=== PATIENT | female | born 1950 | race Caucasian/White ===

== ENCOUNTER → 2017-06-29 | Outpatient (CLI) | payer OTHER | END | disposition home or self-care (01) | LOC: CFH 09:21 | PROVIDERS: ATTEND Nurse Practitioner | DX: Z12.31 Encounter for screening mammogram for malignant neoplasm of breast (principal); Z13.820 Encounter for screening for osteoporosis; M85.88 Other specified disorders of bone density and structure, other site; N95.8 Other specified menopausal and perimenopausal disorders | CPT/HCPCS: 77080; 77067 ==

== ENCOUNTER → 2018-06-30 | Outpatient (CLI) | payer OTHER | END | disposition home or self-care (01) | LOC: CFH 08:30 | PROVIDERS: ATTEND Licensed Practical Nurse | DX: Z12.31 Encounter for screening mammogram for malignant neoplasm of breast (principal) | CPT/HCPCS: 77063; 77067 ==

== ENCOUNTER → 2019-07-10 | Outpatient (CLI) | payer MEDICARE, OTHER | END | disposition home or self-care (01) | LOC: CFH 09:52 | PROVIDERS: ATTEND Licensed Practical Nurse | DX: Z12.31 Encounter for screening mammogram for malignant neoplasm of breast (principal); Z12.2 Encounter for screening for malignant neoplasm of respiratory organs; N95.8 Other specified menopausal and perimenopausal disorders; I25.10 Atherosclerotic heart disease of native coronary artery without angina pectoris; J84.10 Pulmonary fibrosis, unspecified; M81.0 Age-related osteoporosis without current pathological fracture; F17.210 Nicotine dependence, cigarettes, uncomplicated | CPT/HCPCS: 77063; 77067; 77080; G0297 ==

== ENCOUNTER → 2019-12-25 | Outpatient (CLI) | payer MEDICARE | END | disposition home or self-care (01) | LOC: CFH 08:49 | PROVIDERS: ATTEND Nurse Practitioner | DX: M54.9 Dorsalgia, unspecified (principal) | CPT/HCPCS: 72110 ==

== ENCOUNTER 2020-01-31 11:38 | Day surgery (SDC) | payer MEDICARE ==
[~2020-01-31] VITALS: Ht 165.1 cm; Wt 57.2 kg
[2020-01-31] MEDS ORDERED: LACTATED RINGERS 1,000 ML IV SCH (12:15)
[2020-01-31 12:29] VITALS: BP 114/73
[2020-01-31] MEDS ORDERED: CHLORHEXIDINE 15 ML UDC MM ONE (12:30)
[2020-01-31] MEDS ORDERED: HYDR-3246 PO (12:45)
[2020-01-31] MEDS ORDERED: METH750T2 PO (12:45)
[2020-01-31] MEDS ORDERED: LOVA20TA2 PO (12:45)
[2020-01-31] MEDS ORDERED: NEOSTIGMINE 1 MG/ML, 10ML ONE (14:30)
[2020-01-31] MEDS ORDERED: PROMETHAZINE 25 MG/ML, 1ML IVPush PRN (14:30)
[2020-01-31] MEDS ORDERED: PROPOFOL 10 MG/ML, 20ML ONE (14:30)
[2020-01-31] MEDS ORDERED: morphine SULFATE 10 MG/ML, 1ML IVPush PRN (14:30)
[2020-01-31] MEDS ORDERED: OXYcodone 5 MG/5 ML ORAL.SOL UDC PO PRN (14:30)
[2020-01-31] MEDS ORDERED: ROCURONIUM 10MG/ML,5ML ONE (14:30)
[2020-01-31] MEDS ORDERED: ONDANSETRON 2MG/ML, 2ML ONE (14:30)
[2020-01-31] MEDS ORDERED: MIDAZOLAM 1 MG/ML, 2ML ONE (14:30)
[2020-01-31] MEDS ORDERED: HALOPERIDOL 5 MG/ML IV PRN (14:30)
[2020-01-31] MEDS ORDERED: LABETALOL 5MG/ML, 20ML IV PRN (14:30)
[2020-01-31] MEDS ORDERED: FENTANYL PF 250 MCG/5ML ONE (14:30)
[2020-01-31] MEDS ORDERED: GLYCOPYRROLATE 0.2MG/1ML, 5ML ONE (14:30)
[2020-01-31] MEDS ORDERED: MEPERIDINE/PF 25MG/0.5ML IVPush PRN (14:30)
[2020-01-31] MEDS ORDERED: hydrALAzine 20 MG/ML, 1ML IV PRN (14:30)
[2020-01-31] MEDS ORDERED: CEFAZOLIN 1,000 MG ONE (14:30)
[2020-01-31] MEDS ORDERED: DEXAMETHASONE 4 MG/ML, 1ML ONE (14:30)
[2020-01-31] MEDS ORDERED: LIDOCAINE 1%, 20ML ONE (14:37)
[2020-01-31] MEDS ORDERED: FENTANYL PF 100 MCG/2ML ONE (16:47)
[2020-01-31] MEDS ORDERED: OXYcodone 5 MG/5 ML ORAL.SOL UDC ONE (16:47)
[2020-01-31] MEDS ORDERED: HYDROmorphone 1 MG/ML, 1ML INJ ONE (16:47)
[2020-01-31] MEDS: HYDROmorphone 1 MG/ML, 1ML INJ IVPush PRN ×2 (16:52→17:12)
[2020-01-31] MEDS: FENTANYL PF 100 MCG/2ML IV PRN ×2 (16:55→17:00)
[2020-01-31] MEDS ORDERED: DIAZEPAM 5 MG/ML, 2ML ONE (17:22)
[2020-01-31] MEDS ORDERED: DIAZEPAM 5 MG/ML, 2ML IV ONE (17:30)
== END 2020-01-31 19:00 | disposition home or self-care (01) ==
LOC: OUT 11:38
PROVIDERS: ATTEND Anesthesiology
DX: S32.020A Wedge compression fracture of second lumbar vertebra, initial encounter for closed fracture (principal); M54.5 Low back pain; S22.080A Wedge compression fracture of T11-T12 vertebra, initial encounter for closed fracture; Z11.59 Encounter for screening for other viral diseases; F17.210 Nicotine dependence, cigarettes, uncomplicated; Z79.899 Other long term (current) drug therapy; Z90.710 Acquired absence of both cervix and uterus; Z98.1 Arthrodesis status; X50.1XXA Overexertion from prolonged static or awkward postures, initial encounter; Y93.89 Activity, other specified; Y92.89 Other specified places as the place of occurrence of the external cause; Y99.8 Other external cause status
CPT/HCPCS: 22513; 22515; 36415; 87635; 93005; C1713; J0690; J1100; J1170; J2250; J2405; J2704; J2710; J3010; J3360; J7120